=== PATIENT | female | born 1995 | race Two or more races ===

== ENCOUNTER 2017-05-08 14:25 | Emergency (ER) | payer MEDICAID ==
[~2017-05-08] VITALS: Ht 160 cm; Wt 70.3 kg
[2017-05-08 15:41] VITALS: BP 123/92
[2017-05-08] MEDS ORDERED: KETOROLAC TROMETH 60MG/2ML VIAL IM ONE (17:15)
== END 2017-05-08 17:33 | disposition home or self-care (01) ==
LOC: ER 14:25
DX: G89.29 Other chronic pain (principal); M25.571 Pain in right ankle and joints of right foot; M77.9 Enthesopathy, unspecified
CPT/HCPCS: 96372; 99283; J1885